=== PATIENT | female | born 1995 ===

== ENCOUNTER 2017-06-04 09:20 | Emergency (ER) | payer MEDICAID ==
[2017-06-04 09:20] VITALS: BMI 24.2
[2017-06-04 09:38] VITALS: O2SAT 100
[2017-06-04] MEDS ORDERED: Sodium Chloride 0.9% 1,000 ML IV STA (09:58)
--- NOTE | 2017-06-04 10:20 | C.PDOC ---
History Of Present Illness 21 y/o female presents to ED with complaint of left sided rib pain, radiating to her hip area, for 3 days. Patient denies any fever, urinary symptoms, nausea , vomiting, or diarrhea. Patient reports pain worsens with movement, laughing, sneezing, and deep breathing. Denies shortness of breath, cough, chest pain. Time Seen by Provider: 06/04/17 09:54 Chief Complaint (Nursing): Back Pain History Per: Patient History/Exam Limitations: no limitations Current Symptoms Are (Timing): Still Present Quality Of Discomfort: "Pain" Previous Symptoms: None Exacerbating Factor(s): Movement Recent travel outside of the [place]: No Past Medical History Reviewed: Historical Data, Nursing Documentation, Vital Signs Vital Signs: Last Vital Signs Temp 98.5 F 06/04/17 09:35 Pulse 79 06/04/17 09:35 Resp 16 06/04/17 09:35 BP 110/75 06/04/17 09:35 Pulse Ox 100 06/04/17 12:15 - Medical History PMH: Asthma Surgical History: Tonsillectomy Family History: States: Unknown Family Hx - Social History Hx Tobacco Use: No Hx Alcohol Use: No Hx Substance Use: No - Immunization History Hx Tetanus Toxoid Vaccination: No Hx Influenza Vaccination: No Hx Pneumococcal Vaccination: No Review Of Systems Except As Marked, All Systems Reviewed And Found Negative. Constitutional: Negative for: Fever, Chills Cardiovascular: Negative for: Chest Pain Respiratory: Negative for: Cough, Shortness of Breath, Wheezing Gastrointestinal: Negative for: Nausea, Vomiting Musculoskeletal: Positive for: Other (left sided rib pain) Skin: Negative for: Rash Neurological: Negative for: Headache, Dizziness Physical Exam - Physical Exam Appears: Non-toxic, No Acute Distress Skin: Warm, Dry Head: Atraumatic, Normacephalic Eye(s): bilateral: Normal Inspection, PERRL, EOMI Chest: Symmetrical, Tenderness (posterior lateral ribs, inferior to scapula, + tenderness - to palpation and movement) Cardiovascular: Rhythm Regular Respiratory: Normal Breath Sounds, No Rales, No Rhonchi, No Wheezing Gastrointestinal/Abdominal: Soft, No Tenderness, No Guarding, No Rebound Back: Normal Inspection, No Vertebral Tenderness, No Paraspinal Tenderness Extremity: Normal ROM, No Tenderness, Capillary Refill (< 2 sec.) Extremity: Bilateral: Normal Color And Temperature Neurological/Psych: Oriented x3, Normal Speech, Normal Cognition ED Course And Treatment - Laboratory Results Result Diagrams: 06/04/17 10:31 06/04/17 10:31 O2 Sat by Pulse Oximetry: 100 (room air ) Pulse Ox Interpretation: Normal - Radiology CXR: Read By Radiologist CXR Interpretation: Yes: No Acute Disease Progress Note: Labs and blood work were ordered and patient was given IV fluids. Treated with Lidoderm patch. On re-eval, patient reports improvement of pain, and is resting comfortably in no acute distress. Advised to follow up with PMD/clinic within 1-2 days. Disposition - Disposition Disposition: HOME/ ROUTINE Disposition Time: 12:12 Condition: STABLE Additional Instructions: Follow up with your PMD within 1-2 days. Return to Ed if feel worse. Prescriptions: Cyclobenzaprine [Cyclobenzaprine HCl] 10 mg PO TID #15 tab Lidocaine 4% [Lidocaine 4% 50 ml Topical (or)] 1 appl TOP QID #1 bottle Lidocaine 5% [Lidoderm] 1 patch TP DAILY #30 patch Acetaminophen [Tylenol 325mg tab] 2 tab PO Q6 #50 tab Instructions: Musculoskeletal Pain (ED) Forms: [employer] (Salvadorean) - Clinical Impression Clinical Impression: Musculoskeletal back pain - PA / PROPERTY ASSISTANT / Resident Statement MD/DO has reviewed & agrees with the documentation as recorded. - Scribe Statement The provider has reviewed the documentation as recorded by the Scribe SM All medical record entries made by the Scribe were at my direction and personally dictated by me. I have reviewed the chart and agree that the record accurately reflects my personal performance of the history, physical exam, medical decision making, and the department course for this patient. I have also personally directed, reviewed, and agree with the discharge instructions and disposition.
[2017-06-04] MEDS ORDERED: Sodium Chloride 0.9% 1,000 ML ONE (10:22)
[2017-06-04 10:35] LABS: BASO % 0.8 % (0.0-2.0); EOS % 0.7 % (0.0-4.0); HEMATOCRIT 33.4 % (34.0-47.0); LYMPH # 1.4 K/uL (1.0-4.3); LYMPH % 23.6 % (20.0-40.0); MEAN CELL VOLUME 82.2 fL (81.0-99.0); MEAN CORPUSCULAR HEMOGLOBIN 27.2 pg (27.0-31.0); MEAN PLATELET VOLUME 9.7 fL (7.2-11.7); MONO # 0.5 K/uL (0.0-0.8); MONO % 8.4 % (0.0-10.0); RED CELL DISTRIBUTION WIDTH 14.9 % (11.5-14.5)
[2017-06-04 10:43] LABS: CHLORIDE 105 mmol/L (98-107); POTASSIUM 4.4 mmol/L (3.6-5.2); SODIUM 141 mmol/L (132-148)
[2017-06-04 10:44] LABS: URINE BILIRUBIN NEGATIVE (NEGATIVE); URINE BLOOD 2+ (NEGATIVE); URINE COLOR Yellow (YELLOW); URINE GLUCOSE (UA) NORMAL (Normal); URINE KETONE NEGATIVE (NEGATIVE); URINE LEUKOCYTE ESTERASE NEG Leu/uL (Negative); URINE PROTEIN NEGATIVE (NEGATIVE); URINE UROBILINOGEN NORMAL mg/dL (0.2-1.0); WBC URINE < 1 /hpf (0-5)
[2017-06-04 10:45] LABS: BILIRUBIN,TOTAL 0.6 mg/dL (0.2-1.3); GFR AFRICAN-AMERICAN > 60
[2017-06-04 10:46] LABS: ALB/GLOB RATIO 1.6 (1.0-2.1); ALKALINE PHOSPHATASE 53 U/L (38-126); ALT/SGPT 22 U/L (9-52); AST/SGOT 20 U/L (14-36); BLOOD UREA NITROGEN 15 mg/dL (7-17); CALCIUM 8.9 mg/dl (8.6-10.4); CARBON DIOXIDE 24 mmol/L (22-30); GLUCOSE,RANDOM 75 mg/dL (65-105); TOTAL PROTEIN 6.5 g/dL (6.3-8.3)
[2017-06-04 11:11] LABS: RBC URINE 3 /hpf (0-3)
[2017-06-04] MEDS ORDERED: Lidocaine 5% Patch TD STA (12:16)
[2017-06-04] MEDS ORDERED: Lidocaine 5% Patch TD ONE (12:25)
[2017-06-04 12:28] VITALS: BP 108/66; PULSE 73; RESP 20; TEMP 98.1
--- NOTE | 2017-06-04 13:13 | RAD ---
HISTORY: left pruritic pain COMPARISON: No prior. TECHNIQUE: Chest PA and lateral FINDINGS: LUNGS: No active pulmonary disease. PLEURA: No significant pleural effusion identified. No pneumothorax apparent. CARDIOVASCULAR: Normal. OSSEOUS STRUCTURES: No significant abnormalities. VISUALIZED UPPER ABDOMEN: Normal. OTHER FINDINGS: None. IMPRESSION: No active disease.
== END 2017-06-04 12:31 | disposition home or self-care (01) ==
LOC: C.ER 09:20
DX: M54.9 Dorsalgia, unspecified (principal)
CPT/HCPCS: 71020; 80053; 81001; 84703; 85025; 85378; 85610; 85730; 96360; 99284; J7040

== ENCOUNTER 2018-07-26 10:31 | Emergency (ER) | payer MEDICAID ==
[2018-07-26 10:31] VITALS: BMI 24.2
[2018-07-26 10:55] VITALS: O2SAT 99
--- NOTE | 2018-07-26 12:08 | C.PDOC ---
History Of Present Illness 23 y/o female,w/PMhx of migraine headaches, presents to the ER for evaluation of gradual onset of right temporal headache which has been present for the past 3 days. Pt states that she has associated light sensitivity,nausea, and 1 episode of vomiting. Pt took Ibuprofen at home without any improvement.Pt admits to having history of similar symptoms. Denies fever, chills, recent illness, denies "worse headache of life", dizziness, changes in visions, focal deficits, CP, SOB, palpitation, abd. pain, hematemesis, diarrhea, back pain, UTI. Ambulate to ED for evaluation, not in any apparent distress. Time Seen by Provider: 07/26/18 11:28 Chief Complaint (Nursing): Headache History Per: Patient History/Exam Limitations: no limitations Onset/Duration Of Symptoms: Days Current Symptoms Are (Timing): Still Present Severity: Moderate Past Medical History Reviewed: Historical Data, Nursing Documentation, Vital Signs Vital Signs: Last Vital Signs Temp 98.8 F 07/26/18 10:52 Pulse 89 07/26/18 10:52 Resp 20 07/26/18 10:52 BP 103/66 07/26/18 10:52 Pulse Ox 99 07/26/18 10:52 - Medical History PMH: Asthma Surgical History: Tonsillectomy Family History: States: No Known Family Hx - Social History Hx Tobacco Use: No Hx Alcohol Use: No Hx Substance Use: No - Immunization History Hx Tetanus Toxoid Vaccination: No Hx Influenza Vaccination: No Hx Pneumococcal Vaccination: No Review Of Systems Except As Marked, All Systems Reviewed And Found Negative. Constitutional: Negative for: Fever, Chills Eyes: Positive for: Other (light sensitivity) Gastrointestinal: Positive for: Nausea, Vomiting Neurological: Positive for: Headache Physical Exam - Physical Exam Appears: Non-toxic, No Acute Distress Skin: Normal Color, Warm, Dry Head: Atraumatic, Normacephalic, Tenderness (tenderness over right temporal region), No Swelling, No Abrasion, No Laceration Eye(s): bilateral: PERRL, EOMI Ear(s): Bilateral: Normal Nose: No Flaring, No Discharge Oral Mucosa: Moist, No Drooling Throat: No Erythema, No Drooling Neck: Trachea Midline, Supple, Other ((-) meningeal sign) Chest: Symmetrical Cardiovascular: Rhythm Regular, No Murmur, No JVD, Other ((-)carotid bruits B/L) Respiratory: No Rales, No Rhonchi, No Wheezing Gastrointestinal/Abdominal: Soft, No Tenderness, No Distention, No Guarding Back: No CVA Tenderness Extremity: Normal ROM, No Swelling Neurological/Psych: Oriented x3, Normal Speech, Normal Cognition, Normal Motor, Normal Sensation, Normal Reflexes ED Course And Treatment - Laboratory Results Urine POC: Negative O2 Sat by Pulse Oximetry: 99 (RA) Pulse Ox Interpretation: Normal Progress Note: HCG, Qual. and UA ordered.Patient treated with Reglan PO and Tramadol PO. Pt was OBS in ED for 1.5hrs and repotrs mod improvement in sx. On re-eval, pt is afebrile, hemodynamicaly stable. Non-toxic. Ambulatoyr in ED with stable gait. Neck: Supple, (-) meningeal sign. ENT: no acute findings. Lungs: CTA B/L, BS equal B/L. CVS: (+)S1S2, reg. Abd: benign. Neuorlogicaly intact. Preg (-). UA- normal study. Pt has clinical findings c/w headache r/o migraine. Pt advised and ref. to f/u with PMD, Neuro in 2-3 days for re-eval. return to ED if any worsening or new changes. Pt understand and agrees with plan. Disposition Counseled Patient/Family Regarding: Studies Performed, Diagnosis, Need For Followup, Rx Given - Disposition Referrals: Frances Monique MD [Medical Doctor] - Ivan Carlton MD [Staff Provider] - Vera Hamlin MD [Staff Provider] - Disposition: HOME/ ROUTINE Disposition Time: 12:35 Condition: STABLE Additional Instructions: Encourage fluids take pain medication as prescribed Follow up with PMD, Neurologist in 2-3 days for re-evaluation. return to ED if any worsening or new changes. Prescriptions: Acetaminophen/Butalbital/Caf [Fioricet] 1 tab PO BID #10 tab Metoclopramide [Reglan] 1 tab PO BID PRN #10 tab PRN Reason: Nausea/Vomiting Instructions: Migraine Headache (DC) Forms: [employer] (Samoan) - Clinical Impression Clinical Impression: Migraine - PA / DATA ANALYSIS ASSISTANT / Resident Statement MD/DO has reviewed & agrees with the documentation as recorded. - Scribe Statement The provider has reviewed the documentation as recorded by the Scribe Valentino Lopez Provider Attestation All medical record entries made by the Evelynibe were at my direction and personally dictated by me. I have reviewed the chart and agree that the record accurately reflects my personal performance of the history, physical exam, medical decision making, and the department course for this patient. I have also personally directed, reviewed, and agree with the discharge instructions and disposition.
[2018-07-26 12:15] LABS: HCG,QUALITATIVE URINE NEGATIVE (NEGATIVE)
[2018-07-26 12:17] LABS: SQUAMOUS EPITHIAL 3 /hpf (0-5); URINE BACTERIA MOD (<OCC); URINE BILIRUBIN NEGATIVE (NEGATIVE); URINE BLOOD NEGATIVE (NEGATIVE); URINE CLARITY Hazy (Clear); URINE COLOR Yellow (YELLOW); URINE GLUCOSE (UA) NORMAL (Normal); URINE LEUKOCYTE ESTERASE NEG Leu/uL (Negative); URINE PROTEIN NEGATIVE (NEGATIVE); URINE UROBILINOGEN NORMAL mg/dL (0.2-1.0)
[2018-07-26 13:37] VITALS: BP 105/65; PULSE 82; RESP 18; TEMP 98.3
== END 2018-07-26 13:10 | disposition home or self-care (01) ==
LOC: C.ER 10:31
DX: G43.909 Migraine, unspecified, not intractable, without status migrainosus (principal)